=== PATIENT | male | born 1930 | race Caucasian/White ===

== ENCOUNTER 2017-09-18 07:49 | Inpatient (IN) | payer MEDICARE, BC ==
[2017-09-18] VITALS (15 sets, daily range): BP systolic 92–160; BP diastolic 64–91; PULSE 59–68; RESP 16–20; TEMP 97.5–97.9; O2SAT 92–99
[~2017-09-18] VITALS: Ht 167.6 cm; Wt 75.9 kg
[~2017-09-18 07:49] MED LIST: ASPI81 PO; CARD240C6 PO; DUONI NEB; METO50TA PO; ONDA1TAB16 PO; OXYC-360 PO; STOO100C PO; SYMB160A INH; VITA100018 PO; ZOCO80TA PO
[2017-09-18] MEDS ORDERED: VENTAER INH (08:17)
[2017-09-18] MEDS ORDERED: ASPI-183 PO (08:17)
[2017-09-18] MEDS ORDERED: SYMB80AE INH (08:17)
[2017-09-18] MEDS ORDERED: DILT240C44 PO (08:17)
[2017-09-18] MEDS ORDERED: METO50TA PO (08:17)
[2017-09-18] MEDS ORDERED: SIMV80TA PO (08:17)
[2017-09-18] MEDS ORDERED: HYDR-4107 (08:17)
[2017-09-18] MEDS ORDERED: LIDOCAINE HCL 1% 20 ML VIAL ONE (09:26)
[2017-09-18] MEDS ORDERED: MIDAZOLAM HCL 2 MG/2 ML VIAL ONE ×2 (09:37→15:59)
--- NOTE | 2017-09-18 10:57 | RADRPT ---
EXAM DATE/TIME: 09/18/2017 10:37 [facility] COMPARISON: CT NEEDLE BIOPSY LUNG, RIGHT, September 18, 2017, 10:01. INDICATIONS : Evaluate for pneumothorax. Post right lung biopsy. MEDICAL HISTORY : Coronary artery disease. SURGICAL HISTORY : CABG. Pacemaker. ENCOUNTER: Subsequent ACUITY: 1 day PAIN SCORE: 0/10 LOCATION: Right chest FINDINGS: There is a small right apical pneumothorax measuring 2.2 cm in size. Median sternotomy wires are note d status post cardiac surgery. Left subclavian dual lead pacemaker has its tips in the right heart. CONCLUSION: Small right apical pneumothorax measuring 2.2 cm. Deepak Whitmore MD on September 18, 2017 at 10:51 Board Certified Radiologist. This report was verified electronically.
--- NOTE | 2017-09-18 12:46 | RADRPT ---
EXAM DATE/TIME: 09/18/2017 12:17 [facility] COMPARISON: CHEST EXPIRATION ONLY, September 18, 2017, 10:37. INDICATIONS : Post right lung biopsy. MEDICAL HISTORY : Chronic obstructive pulmonary disease. Hypertension CAD SURGICAL HISTORY : CABG. Pacemaker. ENCOUNTER: Subsequent ACUITY: 1 day PAIN SCORE: 0/10 LOCATION: Right chest FINDINGS: A single frontal expiratory view of the chest was performed. There is a stable small right apical pne umothorax measuring 2.1 cm in size. The heart is stable. Right mid lung field pulmonary nodule is als o stable. The lungs are clear. Left subclavian dual lead pacemaker is unchanged. CONCLUSION: Stable small right apical pneumothorax measuring 2.1 cm in greatest dimension. Deepak Whitmore MD on September 18, 2017 at 12:42 Board Certified Radiologist. This report was verified electronically.
--- NOTE | 2017-09-18 14:57 | RADRPT ---
EXAM DATE/TIME: 09/18/2017 10:01 [facility] COMPARISON: No previous studies available for comparison. INDICATIONS : Right lung mass. SEDATION TIME: 30 minutes BIOPSY SITE: Right MEDICATION(S): 1.) 2 mg midazolam (Versed) IV 2.) 100 mcg fentanyl (Sublimaze) IV DEVICE(S): 1.) 20 gauge Temno core biopsy needle MEDICAL HISTORY : Hypertension. Cardiovascular disease. SURGICAL HISTORY : Cholecystectomy Appendectomy. CABG ENCOUNTER: Initial ACUITY: 1 day PAIN SCORE: 0/10 LOCATION: Right A total of one core specimen(s) were obtained and sent to the laboratory for pathologic evaluation. PROCEDURE: 1. CT guided lung biopsy. 2. Conscious sedation with continuous EKG and oximetry monitoring. 3. EKG and oximetry remained stable throughout the procedure. Prior to the procedure informed consent was obtained. Any appropriate prior imaging studies were rev iewed. Using automated exposure control and adjustment of the mA and/or kV according to patient size, radiation dose was kept as low as reasonably achievable to obtain optimal diagnostic quality images. DICOM format image data is available electronically for review and comparison. The site was prepped in a sterile fashion. Full sterile technique was used, including cap, mask, linda rile gloves and gown and a large sterile sheet. Hand hygiene and 2% chlorhexidine and/or betadine/al cohol prep was utilized per protocol for cutaneous antisepsis. The skin and subcutaneous tissues wer e infiltrated with local anesthetic solution. With CT guidance the previously identified target was localized. Biopsy was performed using the presc ribed needle as above. Adequate hemostasis was obtained with compression at the puncture site. Follow-up CT scan reveals a small pneumothorax. Conscious sedation was performed with the prescribed dosages and duration as above in the presence of an independent trained radiology nurse to assist in the monitoring of the patient. EKG and oximetry remained stable throughout the procedure. The patient tolerated the procedure well and there were no complications. The patient was sent to Radiology Outpatient Unit in stable condition. CONCLUSION: Successful CT guided biopsy with small pneumothorax noted on the post-biopsy scan. Deepak Whitmore MD on September 18, 2017 at 14:53 Board Certified Radiologist. This report was verified electronically.
--- NOTE | 2017-09-18 15:16 | RADRPT ---
EXAM DATE/TIME: 09/18/2017 15:02 [facility] COMPARISON: CHEST EXPIRATION ONLY, September 18, 2017, 12:17. INDICATIONS : Evaluate for pneumothorax. Post lung biopsy. MEDICAL HISTORY : Hypertension. Cardiovascular disease. SURGICAL HISTORY : Cholecystectomy Appendectomy. CABG ENCOUNTER: Subsequent ACUITY: 1 day PAIN SCORE: 2/10 LOCATION: Bilateral chest FINDINGS: There has been interval worsening of the right-sided pneumothorax compared to the previous examinatio n at 12:17 PM. The pneumothorax now measures 5 cm at the apex and 2.5 cm laterally. Small chest tube will be placed for resolution of this pneumothorax. There is no tension noted. The left lung is stabl e. CONCLUSION: Interval worsening of the right-sided pneumothorax which now measures 5 cm at the apex and 2.5 cm lat erally. Small chest tube will be placed for resolution of this pneumothorax. Deepak Whitmore MD on September 18, 2017 at 15:10 Board Certified Radiologist. This report was verified electronically.
--- NOTE | 2017-09-18 17:37 | RADRPT ---
EXAM DATE/TIME: 09/18/2017 17:20 [facility] COMPARISON: CHEST EXPIRATION ONLY, September 18, 2017, 15:02. INDICATIONS : Chest tube placement. MEDICAL HISTORY : None. SURGICAL HISTORY : Pacemaker. ENCOUNTER: Subsequent ACUITY: 1 day PAIN SCORE: 3/10 LOCATION: Right chest FINDINGS: Pacemaker device is noted with control pack over the left chest. There is been interval placement of a right apical pigtail thoracostomy tube which is in good position. There is been resolution of right pneumothorax. Right perihilar lung nodule is again seen. Minimal streaky basilar parenchymal opaciti es grossly stable. Cardiac contours are unchanged area sternotomy wires again noted. CONCLUSION: Interval thoracostomy tube placement with resolution of right pneumothorax Gilberto Saucedo MD on September 18, 2017 at 17:33 Board Certified Radiologist. This report was verified electronically.
--- NOTE | 2017-09-18 17:42 | RADRPT ---
EXAM DATE/TIME: 09/18/2017 17:13 [facility] COMPARISON: No previous studies available for comparison. INDICATIONS : Patient presents post lung biopsy with right pneumothorax in need of chest tube placement. MEDICAL HISTORY : HTN CAD SURGICAL HISTORY : Cholecystectomy Appendectomy CABG ENCOUNTER: Initial ACUITY: 1 day PAIN SCORE: 10/10 LOCATION: Right chest back FLUORO TIME: 1.5 minutes IMAGE SERIES: SEDATION TIME: 30 minutes MEDICATION(S): 1.) 2 mg midazolam (Versed) IV 2.) 100 mcg fentanyl (Sublimaze) IV DEVICE(S): 1.) 10 Spanish non-locking catheter Emmanuel PROCEDURE : 1. Fluoroscopically guided chest tube placement. 2. Conscious sedation with continuous EKG and oximetry monitoring. The risks, benefits and alternatives to the procedure were explained and verbal and written consent w as obtained. The site was prepped in sterile fashion. Full sterile technique was used, including ca p, mask, sterile gloves and gown and a large sterile sheet. Hand hygiene and 2% chlorhexidine and/or betadine/alcohol prep was utilized per protocol for cutaneous antisepsis. The skin and subcutaneous tissues were infiltrated with local anesthetic solution. With fluoroscopic guidance the chest was punctured between the first and second interspace and the pr escribed catheter was placed in the lung apex. Wall suction was applied. Post procedure images demon strate satisfactory position of the tube. The catheter was sutured in place and a Percu-Stay was bren lied. Conscious sedation was performed with the prescribed dosages and duration as above in the presence of an independent trained radiology nurse to assist in the monitoring of the patient. EKG and oximetry remained stable throughout the procedure. The patient tolerated the procedure well and there were n o complications. The patient was sent to post anesthesia recovery in stable condition. CONCLUSION: Uncomplicated chest tube placement as above. Gilberto Saucedo MD on September 18, 2017 at 17:40 Board Certified Radiologist. This report was verified electronically.
[2017-09-18] MEDS: oxyCODONE/ACETAMINOPHEN 5 MG/325 MG TAB PO PRN (18:14)
[2017-09-19 00:52] VITALS: BP 151/65; PULSE 60; RESP 18; TEMP 97.2
[2017-09-19] MEDS: oxyCODONE/ACETAMINOPHEN 5 MG/325 MG TAB PO PRN (04:49)
[2017-09-19 04:50] VITALS: BP 175/76; PULSE 61
[2017-09-19 05:16] VITALS: BP 185/77; PULSE 69; RESP 19; TEMP 97.7; O2SAT 99
[2017-09-19] MEDS: DILTIAZEM-CD 240 MG CAP ER PO SCH ×2 (06:18→06:19)
[2017-09-19] MEDS: METOPROLOL TARTRATE 50 MG TAB PO SCH ×2 (06:18→06:19)
--- NOTE | 2017-09-19 07:21 | RADRPT ---
EXAM DATE/TIME: 09/19/2017 06:21 [facility] COMPARISON: CHEST EXPIRATION ONLY, September 18, 2017, 17:20. INDICATIONS : Short of breath, evaluate right side pneumothorax and chest tube MEDICAL HISTORY : pneumothorax SURGICAL HISTORY : Pacemaker. chest tube ENCOUNTER: Subsequent ACUITY: 2 days PAIN SCORE: 2/10 LOCATION: Right chest FINDINGS: A single frontal expiratory view of the chest was performed. Right-sided lung mass seen. Small calibe r chest tube in the right apex. No pneumothorax left-sided pacemaker with 2 intact leads. Previous me kenn sternotomy.. CONCLUSION: No right-sided pneumothorax. Chris Umana MD on September 19, 2017 at 7:16 Board Certified Radiologist. This report was verified electronically.
[2017-09-19 08:22] VITALS: BP 156/69; PULSE 60; RESP 17; TEMP 97.9; O2SAT 99
[2017-09-19] MEDS ORDERED: BUDESONIDE-FORMOTEROL 80/4.5 MCG INHALER INH SCH (09:00)
[2017-09-19] MEDS ORDERED: ATORVASTATIN 40 MG TAB PO SCH (09:00)
[2017-09-19] MEDS ORDERED: METOPROLOL TARTRATE 50 MG TAB PO SCH (09:00)
[2017-09-19] MEDS ORDERED: DILTIAZEM-CD 240 MG CAP ER PO SCH (09:00)
--- NOTE | 2017-09-19 11:33 | RADRPT ---
EXAM DATE/TIME: 09/19/2017 11:09 [facility] COMPARISON: CHEST EXPIRATION ONLY, September 19, 2017, 6:21. INDICATIONS : Evaluate pneumothorax MEDICAL HISTORY : Hypertension. SURGICAL HISTORY : Pacemaker. CABG. Pacemaker. chest tube ENCOUNTER: Subsequent ACUITY: 2 days PAIN SCORE: 2/10 LOCATION: Right chest FINDINGS: Right apical chest tube remains in good position. No recurrent pneumothorax is noted on the right. Th e heart is stable. The lungs are unchanged. Left-sided pacemaker is stable. CONCLUSION: No recurrent pneumothorax noted status post placement of small right chest tube. Deepak Whitmore MD on September 19, 2017 at 11:29 Board Certified Radiologist. This report was verified electronically.
[2017-09-19 12:25] VITALS: BP 141/65; PULSE 60; RESP 18; TEMP 98; O2SAT 98
--- NOTE | 2017-09-19 13:33 | HHI.HP ---
[facility] Leesa Ly MD Admission Diagnosis Diagnoses: Chief Complaint: Pneumothorax Travel History International Travel<30 Days: No Contact w/Intl Traveler <30 Da: No Traveled to Known Affected Are: No History of Present Illness Mr. Reeves is a pleasant 87-year-old male with a history of hypertension, CAD, PAD who was admitted to the hospital after CT guided lung biopsy on 09/18/2017. Patient developed a small pneumothorax after CT-guided biopsy. Serial chest x-ray showed slightly expanding pneumothorax requiring chest tube placement. Patient continued to do well overnight. Patient denies any chest pain, shortness of breath, fever or chills. No cough, abdominal pain. Serial chest x-rays were done to monitor pneumothorax. Patient denies any tinges in bowel or bladder habits. Review of Systems Except as stated in HPI: all other systems reviewed are Neg Past Family Social History Past Medical History Hypertension Peripheral artery disease Schwannoma Symptomatic bradycardia status post a speckled placement CAD status post CABG Atrial flutter status post ablation Past Surgical History CABG 2 vessel Cholecystectomy Appendectomy Hernia repair Left BKA Reported Medications Albuterol inhaler Simvastatin 80 mg daily Metoprolol tartrate 50 mg twice a day Diltiazem CD 24-hour 240 mg daily Aspirin 325 mg daily Hydrocortisone-acetaminophen 5-300 mg every 4 hours when necessary Symbicort Allergies: Coded Allergies: adhesive (Unverified Allergy, Unknown, Skin Discoloration, 03/26/17) Family History Father from malignant hypertension. Mother had dementia. Social History Patient quit smoking in 1987. He drinks alcohol socially. Physical Exam Vital Signs Vital Signs Date Time Temp Pulse Resp B/P (MAP) Pulse Ox O2 Delivery O2 Flow Rate FiO2 09/19/17 12:25 98.0 60 18 141/65 (90) 98 09/19/17 08:22 97.9 60 17 156/69 (98) 99 09/19/17 05:16 97.7 69 19 185/77 (113) 99 09/19/17 04:50 61 175/76 (109) 09/19/17 00:52 97.2 60 18 151/65 (93) 09/18/17 20:15 Nasal Cannula 2.00 09/18/17 20:00 97.9 60 18 147/64 (91) 99 09/18/17 17:30 Nasal Cannula 2.00 09/18/17 17:30 62 18 148/72 (97) 98 09/18/17 17:00 59 20 152/70 (97) 96 09/18/17 17:00 Nasal Cannula 2.00 09/18/17 16:45 97.8 59 20 130/91 (104) 95 09/18/17 16:45 Nasal Cannula 2.00 09/18/17 15:55 68 18 160/75 (103) 92 09/18/17 15:55 96 Nasal Cannula 2.00 09/18/17 14:55 59 18 139/73 (95) 92 09/18/17 13:55 59 18 137/71 (93) 92 09/18/17 13:25 60 18 132/72 (92) 94 Physical Exam GENERAL: This is a well-nourished, well-developed patient, in no apparent distress. SKIN: No rashes, ecchymoses or lesions. Warm and dry. HEAD: Atraumatic. Normocephalic. No temporal or scalp tenderness. EYES: Pupils equal round and reactive. No injection or drainage. ENT: Nose without bleeding, purulent drainage or septal hematoma. Airway patent. NECK: Trachea midline. No lymphadenopathy. Supple, nontender, no meningeal signs. CARDIOVASCULAR: Regular rate and rhythm without murmurs, gallops, or rubs. No JVD. RESPIRATORY: Clear to auscultation. Breath sounds equal bilaterally. No wheezes , rales, or rhonchi. Chest tube was discontinued earlier. GASTROINTESTINAL: Abdomen soft, non-tender, nondistended. No guarding. MUSCULOSKELETAL: Extremities without clubbing, cyanosis, or edema. Left BKA NEUROLOGICAL: Awake and alert. Cranial nerves II through XII intact. No focal neurological deficits. Normal speech. Imaging Last Impressions Chest X-Ray 09/19/17 1100 Signed Impressions: Service Date/Time: September 11:09 - CONCLUSION: No recurrent pneumothorax noted status post placement of small right chest tube. Deepak Whitmore MD Lung Biopsy CT 09/18/17 0000 Signed Impressions: Service Date/Time: Monday, September 18, 2017 10:01 - CONCLUSION: Successful CT guided biopsy with small pneumothorax noted on the post-biopsy scan. Deepak Whitmore MD Chest Tube Insertion 09/18/17 0000 Signed Impressions: Service Date/Time: Monday, September 18, 2017 17:13 - CONCLUSION: Uncomplicated chest tube placement as above. MD Samuel Mahoney VTE Risk Assessment Caprini VTE Risk Assessment: No/Low Risk (score <= 1) Caprini Risk Assessment Model Point Value = 1 Point Value = 2 Point Value = 3 Point Value = 5 Age 41-60 Minor surgery BMI > 25 kg/m2 Swollen legs Varicose veins or History of unexplained or recurrent spontaneous Oral contraceptives or hormone replacement Sepsis (< 1 month) Serious lung disease, including pneumonia (< 1 month) Abnormal pulmonary function Acute myocardial infarction Congestive heart failure (< 1 month) History of inflammatory bowel disease Medical patient at bed rest Age 61-74 Arthroscopic surgery Major open surgery (> 45 min) Laparoscopic surgery (> 45 min) Malignancy Confined to bed (> 72 hours) Immobilizing plaster cast Central venous access Age >= 75 History of VTE Family history of VTE Factor V Leiden Prothrombin [id number] Lupus anticoagulant Anticardiolipin antibodies Elevated serum homocysteine Heparin-induced thrombocytopenia Other congenital or acquired thrombophilia Stroke (< 1 month) Elective arthroplasty Hip, pelvis, or leg fracture Acute spinal cord injury (< 1 month) Prophylaxis Regimen Total Risk Factor Score Risk Level Prophylaxis Regimen 0-1 Low Early ambulation 2 Moderate Order ONE of the following: *Sequential Compression Device (SCD) *Heparin 5000 units SQ BID 3-4 Higher Order ONE of the following medications: *Heparin 5000 units SQ TID *Enoxaparin/Lovenox 40 mg SQ daily (WT < 150 kg, CrCl > 30 mL/min) *Enoxaparin/Lovenox 30 mg SQ daily (WT < 150 kg, CrCl > 10-29 mL/min) *Enoxaparin/Lovenox 30 mg SQ BID (WT < 150 kg, CrCl > 30 mL/min) AND/OR *Sequential Compression Device (SCD) 5 or more Highest Order ONE of the following medications: *Heparin 5000 units SQ TID (Preferred with Epidurals) *Enoxaparin/Lovenox 40 mg SQ daily (WT < 150 kg, CrCl > 30 mL/min) *Enoxaparin/Lovenox 30 mg SQ daily (WT < 150 kg, CrCl > 10-29 mL/min) *Enoxaparin/Lovenox 30 mg SQ BID (WT < 150 kg, CrCl > 30 mL/min) AND *Sequential Compression Device (SCD) Assessment and Plan Problem List: (1) Pneumothorax of right lung after biopsy ICD Code: J95.811 - Postprocedural pneumothorax (2) CAD (coronary artery disease) ICD Code: I25.10 - Atherosclerotic heart disease of [place] coronary artery without angina pectoris Status: Chronic (3) Hypertension ICD Code: I10 - Essential (primary) hypertension Assessment and Plan Mr. Reeves is a pleasant 87-year-old occasional male who underwent lung biopsy on 09/18/2017. Following a CT-guided lung biopsy patient developed right-sided pneumothorax requiring chest tube placement. - Right-sided pneumothorax following lung biopsy - Interventional radiology following closely. Repeat chest x-ray indicates no pneumothorax. Chest tube discontinued. - Patient is currently doing well. - Coronary artery disease status post CABG - Hypertension - COPD - Continue home medications. Full code. Ambulation. Discharge plan: Once interventional radiology clears, patient can likely be discharged today. IR cleared for discharge. Discharge patient to home Condition on discharge: Improved Regular Diet as tolerated Ad Carly activity Rx written: No new meds. Follow-up with primary care physician in one week. Physician Certification 2 Midnight Certification Type: Admission for Inpatient Services Order for Inpatient Services The services are ordered in accordance with Medicare regulations or non- Medicare payer requirements, as applicable. In the case of services not specified as inpatient-only, they are appropriately provided as inpatient services in accordance with the 2-midnight benchmark. Estimated LOS (days): 2 days is the estimated time the patient will need to remain in the hospital, assuming treatment plan goals are met and no additional complications. Post-Hospital Plan: Home Notes: Patient improved quickly. Chest tube was removed. Patient was cleared for discharge by Interventional radiology. Edwina Sullivan DO Sep 19, 2017 13:33
--- NOTE | 2017-09-19 13:49 | RADRPT ---
EXAM DATE/TIME: 09/19/2017 13:13 [facility] COMPARISON: CHEST EXPIRATION ONLY, September 19, 2017, 11:09. INDICATIONS : Chest tube removal. Evaluate for pneumothorax. MEDICAL HISTORY : Hypertension. SURGICAL HISTORY : Pacemaker. CABG. Pacemaker. chest tube ENCOUNTER: Subsequent ACUITY: 2 days PAIN SCORE: 0/10 LOCATION: Bilateral chest FINDINGS: The small chest tube has been removed. No residual or recurrent pneumothorax is noted. Right mid lung field mass is stable. Bibasilar atelectatic changes are noted. The heart is stable. CONCLUSION: No residual or recurrent pneumothorax noted status post chest tube removal. Deepak Whitmore MD on September 19, 2017 at 13:45 Board Certified Radiologist. This report was verified electronically.
--- NOTE | 2017-09-19 14:01 | PD.RAD ---
Radiology Note Chest tube removed. No PTX. OK to D/C from IR standpoint. Tello Abdullahi MD Sep 19, 2017 14:01
--- NOTE | 2017-09-19 17:27 | RADRPT ---
EXAM DATE/TIME: 09/19/2017 00:00 [facility] COMPARISON: No previous studies available for comparison. INDICATIONS : CXR NEGATIVE WITH NO AIRLEAK ON WATERSEAL DEVICE(S): 1.) Vaseline occlusive dressing PROCEDURE : Chest tube removal. Using aseptic technique the previously placed chest tube was easily removed in one piece and Vaseline gauze and sterile dressing was applied. Chest radiograph is to be obtained. CONCLUSION: Uncomplicated chest tube removal. Tello Abdullahi MD on September 19, 2017 at 17:24 Board Certified Radiologist. This report was verified electronically.
== END 2017-09-19 16:24 | disposition home or self-care (01) | DRG 200 ==
LOC: HRAD 07:49 → HRIP 07:50 → N05B 17:05 → HRAD 17:05 → N05B 18:00
PROVIDERS: ADMIT Hospitalist; ATTEND Hospitalist
PROC: 0BBK3ZX Excision of Right Lung, Percutaneous Approach, Diagnostic (ICD-10-PCS; principal; 2017-09-18)
PROC: 0W9930Z Drainage of Right Pleural Cavity with Drainage Device, Percutaneous Approach (ICD-10-PCS; 2017-09-18)
PROC: 0WP9X0Z Removal of Drainage Device from Right Pleural Cavity, External Approach (ICD-10-PCS; 2017-09-19)
DX: J95.811 Postprocedural pneumothorax (principal); C34.11 Malignant neoplasm of upper lobe, right bronchus or lung; J44.9 Chronic obstructive pulmonary disease, unspecified; I73.9 Peripheral vascular disease, unspecified; I10 Essential (primary) hypertension; I25.10 Atherosclerotic heart disease of native coronary artery without angina pectoris; Z87.891 Personal history of nicotine dependence; Z89.512 Acquired absence of left leg below knee; Z95.0 Presence of cardiac pacemaker; Z95.1 Presence of aortocoronary bypass graft
CPT/HCPCS: 32405; 32557; 71045; 77012; 88305; 88341; 88342; 99152; 99153; C1729; C1769; J2250; J3010